=== PATIENT | male | born 1945 | race Caucasian/White ===

== ENCOUNTER 2017-01-31 00:44 | Emergency (ER) | payer MEDICARE ==
[~2017-01-31] VITALS: Ht 180.3 cm; Wt 93.0 kg
[~2017-01-31 00:44] MED LIST: AMLODIPINE BESYL5 MG PO; ASPIRIN325 MG PO; DEXILANT60 M1 PO; MULTIPLE VITAMI1 CAP PO; MULTIVITAMIN1 CTB PO; SYNTHROID,LEV100 MCG PO; TORADOL10 MG PO; TRIAMTERENE AND1 TAB PO
[2017-01-31 01:00] VITALS: BP 175/80
== END 2017-01-31 01:47 | disposition home or self-care (01) ==
LOC: ED 00:44
DX: H18.821 Corneal disorder due to contact lens, right eye (principal); I10 Essential (primary) hypertension; K21.9 Gastro-esophageal reflux disease without esophagitis; E03.9 Hypothyroidism, unspecified; Z90.49 Acquired absence of other specified parts of digestive tract

== ENCOUNTER 2018-05-18 04:36 | Inpatient (IN) | payer MEDICARE ==
[~2018-05-18] VITALS: Ht 180.3 cm; Wt 92.3 kg
[2018-05-18] VITALS (9 sets, daily range): BP systolic 105–151; BP diastolic 66–75
--- NOTE | ~2018-05-18 | EKG ---
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
--- NOTE | ~2018-05-18 | EKG ---
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 Electronically Signed On 05-19-2018 19:49:13 PDT by Joseph Moreno MD CM:EKGRPT:ELECTROCARDIOGRAM REPORT [id number] AGNELA RICE DRAFT REPORT ANGELA IRWIN DO
--- NOTE | ~2018-05-18 | EKG ---
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 Electronically Signed On 05-19-2018 19:43:56 PDT by Joseph Moreno MD CM:EKGRPT:ELECTROCARDIOGRAM REPORT [id number] ANGELA RICE DRAFT REPORT ANGELA IRWIN DO
[2018-05-18 04:59] LABS: BASO % 0.5 % (0.0-1.0); EOS # 0.3 10*3/uL (0.0-0.4); EOS % 3.3 % (1.0-4.0); HEMATOCRIT 45.6 % (42.0-52.0); HEMOGLOBIN 15.5 g/dl (14.0-18.0); LYMPH % 22.5 % (27.0-41.0); MEAN CELL VOLUME 85.9 fl (80.0-94.0); MEAN CORPUSCULAR HGB 29.2 pg (27.0-31.0); MEAN PLATELET VOLUME 10.3 fl (9.6-12.3); MONO # 0.8 10*3/uL (0.1-1.0); MONO % 8.5 % (3.0-9.0); NEUT # 5.8 10*3/uL (2.3-7.9); NEUT % 64.9 % (47.0-73.0); PLATELET COUNT AUTOMATED 237 10*3/uL (130-400); RED BLOOD COUNT 5.31 10*6/uL (4.50-5.90); WHITE BLOOD COUNT 8.9 10*3/uL (4.8-10.8)
[2018-05-18 05:18] LABS: ALBUMIN 4.3 gm/dl (3.1-4.5); ALKALINE PHOSPHATASE 90 U/L (45-117); BUN 8 mg/dl (7-24); CHLORIDE 101 mmol/L (98-107); CREATININE 0.89 mg/dL (0.70-1.30); POTASSIUM 3.2 mmol/L (3.5-5.1); SGOT/AST 18 IU/L (3-35); SGPT/ALT 36 U/L (12-78); SODIUM 138 mmol/L (136-145); TOTAL PROTEIN 8.5 gm/dL (6.4-8.2)
[2018-05-18 05:21] LABS: TROPONIN I < 0.015 ng/ml (<0.045)
[2018-05-18] MEDS ORDERED: NORVASC5 MG PO (07:19)
[2018-05-18 08:29] LABS: THYROID STIM HORMONE (HS) 6.41 uIU/ml (0.358-4.75)
== END 2018-05-18 16:04 | disposition home or self-care (01) | DRG 392 ==
LOC: ED 04:36 → EDHOLD 06:17 → 5E 06:27
PROVIDERS: Emergency Medicine; Internal Medicine
DX: K21.9 Gastro-esophageal reflux disease without esophagitis (principal); I25.10 Atherosclerotic heart disease of native coronary artery without angina pectoris; E83.41 Hypermagnesemia; D72.810 Lymphocytopenia; E87.6 Hypokalemia; R73.9 Hyperglycemia, unspecified; F43.9 Reaction to severe stress, unspecified; I10 Essential (primary) hypertension; E03.9 Hypothyroidism, unspecified; F41.9 Anxiety disorder, unspecified; E78.2 Mixed hyperlipidemia; Z90.49 Acquired absence of other specified parts of digestive tract; Z80.0 Family history of malignant neoplasm of digestive organs; Z82.49 Family history of ischemic heart disease and other diseases of the circulatory system; Z87.442 Personal history of urinary calculi; Z79.899 Other long term (current) drug therapy

== ENCOUNTER → 2018-05-21 | Outpatient (CLI) | payer MEDICARE ==
[~2018-05-21] MED LIST changes: +NORVASC5 MG PO
--- NOTE | ~2018-05-21 | ST ---
[place], [place] EXERCISE STRESS TEST REPORT NAME: GILBERTO CALDERÓN [id number] UNIT #: [id number] ROOM: DOCTOR: LORIE CASTILLO MD BIRTHDATE: [birth year] DOS: 05/21/2018 INDICATIONS: Central chest pain. PROCEDURE: The patient exercised for 6 minutes 15 seconds on a full [place] protocol stress test and achieved a maximum heart rate of 144, which represented 97% of his maximum predicted heart rate at a workload of 7 mets. He stopped for fatigue and did not reproduce his chest pain. The resting electrocardiogram was normal. He did not develop any diagnostic changes with exercise. One minute prior to completion of the exercise protocol, he was given radionuclide intravenously. IMPRESSION: 1. Adequate exercise capacity without chest pain or diagnostic electrocardiographic changes. 2. Radionuclide administered. Please see the separate imaging report for further details of the patient's stress test results. LORIE CASTILLO MD CM:STRESS:EXERCISE STRESS TEST REPORT [id number] LORIE CASTILLO MD
== END ==
LOC: CARD 04:31
DX: R07.89 Other chest pain (principal); I10 Essential (primary) hypertension